=== PATIENT | female | born 2000 | race Caucasian/White ===

== ENCOUNTER 2021-08-07 15:02 | Outpatient (CLI) | payer OTHER, SELFPAY ==
[2021-08-07 19:28] LABS: Basophils Percent Auto 0.3 % (0.2-1.2); Eosinophils Percent Auto 0.3 % (0-4.4); Hematocrit 35.5 % (37.0-47.0); Hemoglobin 11.4 g/dL (12.0-15.0); Immature Granulocyte Absolute 0.05 K/mm3 (0.00-0.031); Immature Granulocyte Percent A 0.5 % (0-0.5); Lymphocytes Absolute Auto 2.51 K/mm3 (0.9-3.2); Lymphocytes Percent Auto 24.4 % (18.3-44.2); Mean Corpuscular HGB Conc 32.1 g/dl (32-36); Mean Corpuscular Volume 93.4 fl (80-100); Mean Platelet Volume 9.4 fl (7.4-10.4); Monocytes Absolute Auto 0.6 K/mm3 (0.1-0.6); Monocytes Percent Auto 5.9 % (2.6-8.5); Neutrophils Percent Auto 68.6 % (45.5-73.1); Platelet Count Result 246 k/mm3 (150-375); Red Cell Distribution Width 12.5 % (11.5-14.5); White Blood Count 10.3 K/mm3 (4.5-10.0)
[2021-08-08 08:36] LABS: Rapid Plasma Reagin Non-Reactive (NonReactive)
[2021-08-18 16:08] LABS: CF Result NEGATIVE (NEGATIVE); Ethnicity NG
== END 2021-08-07 15:03 | disposition home or self-care (01) ==
PROVIDERS: Visit Provider Student in an Organized Health Care Education/Training Program
DX: O99.810 Abnormal glucose complicating pregnancy (principal); Z3A.28 28 weeks gestation of pregnancy
CPT/HCPCS: 36415; 81220; 81243; 84443; 85025; 86592; 86787; 86850; 87086

== ENCOUNTER 2021-08-16 09:12 | Outpatient (CLI) | payer OTHER, SELFPAY ==
[2021-08-16 10:00] LABS: Glucose Fasting Gestational 92 mg/dL (>/=95)
[2021-08-16 12:07] LABS: Glucose 1 Hour Gest 165 mg/dL (>/=180)
[2021-08-16 13:26] LABS: Glucose 2 Hour Gest 116 mg/dL (>/= 155)
[2021-08-16 13:32] LABS: Glucose 3 Hour Gest 112 mg/dL (>/=140)
== END 2021-08-16 09:13 | disposition home or self-care (01) ==
LOC: ANHLAB 09:15
PROVIDERS: Visit Provider Student in an Organized Health Care Education/Training Program
DX: O99.810 Abnormal glucose complicating pregnancy (principal); Z3A.00 Weeks of gestation of pregnancy not specified
CPT/HCPCS: 36415; 82951; 82952